=== PATIENT | male | born 1995 | race Two or more races ===

== ENCOUNTER 2019-03-10 09:36 | Emergency (ER) | payer MEDICAID ==
[~2019-03-10] VITALS: Ht 175.3 cm; Wt 80.8 kg
--- NOTE | 2019-03-10 09:49 | NUR ---
urine collected and sent to lab.
--- NOTE | 2019-03-10 09:49 | NUR ---
patient presented to the ER c/o abd pain x 4 days, and nausea and vomiting, diarrhea. On room air, breathing evenly and unlabored. kept comfortable, will continue to monitor accordingly. Awaiting for MD for eval.
--- NOTE | 2019-03-10 09:50 | NUR ---
DR. CHOPRA AT BEDSIDE FOR EVAL.
[2019-03-10] MEDS ORDERED: PANTOPRAZOLE 40 MG VIAL ONE (10:07)
[2019-03-10] MEDS ORDERED: MORPHINE SULFATE INJ 4 MG/ML DISP.SYRIN ONE (10:07)
[2019-03-10] MEDS ORDERED: ONDANSETRON HCL/PF 4 MG/2 ML VIAL ONE (10:07)
[2019-03-10] MEDS ORDERED: ACETAMINOPHEN ES 500 MG TABLET ONE (10:08)
[2019-03-10] MEDS ORDERED: METOCLOPRAMIDE HCL 10 MG/2 ML VIAL ONE (10:08)
[2019-03-10 10:18] LABS: BASOPHILS # (AUTO) 0.1 /CMM (0.0-0.2); BASOPHILS % (AUTO) 0.6 % (0.0-2.0); EOSINOPHILS % (AUTO) 0.6 % (0.0-6.0); HEMATOCRIT 46 % (39-51); MEAN CORPUSCULAR HGB CONC 35 g/dl (31.0-36.0); MEAN CORPUSCULAR VOLUME 85 fL (80-96); MONOCYTES % (AUTO) 10.1 % (2.0-12.0); NEUTROPHILS # (AUTO) 7.7 /CMM (1.8-8.9); NEUTROPHILS % (AUTO) 78.7 % (43.0-81.0); PLATELET COUNT (AUTO) 286 /CMM (150-450); RED BLOOD CELL COUNT(AUTO) 5.36 MIL/uL (4.5-6.0); WHITE BLOOD COUNT (AUTO) 9.8 K/uL (4.3-11.0)
--- NOTE | 2019-03-10 10:21 | NUR ---
IV LINE ESTABLISHED. LABS DRAWNED AND SENT TO LAB.
[2019-03-10 10:23] LABS: CALCIUM, SERUM 8.6 mg/dL (8.5-10.1); CREATININE 1.1 mg/dL (0.6-1.3); POTASSIUM 4.2 mmol/L (3.5-5.1)
--- NOTE | 2019-03-10 10:23 | NUR ---
PT IS WHEELED TO CT SCAN VIA [facility].
[2019-03-10 10:29] LABS: ALBUMIN 4.1 g/dL (3.4-5.0); BILIRUBIN,DIRECT 0.2 mg/dL (0.0-0.2); BILIRUBIN,TOTAL 0.7 mg/dL (0.2-1.0); TOTAL PROTEIN, SERUM 8.3 g/dL (6.4-8.2)
[2019-03-10] MEDS ORDERED: IV NS 0.9% 1,000 ML BAG IV ONE (10:30)
[2019-03-10] MEDS ORDERED: ONDANSETRON HCL/PF 4 MG/2 ML VIAL IVP ONE (10:30)
[2019-03-10] MEDS ORDERED: MORPHINE SULFATE INJ 2 MG/ML DISP.SYRIN IV ONE (10:30)
[2019-03-10] MEDS ORDERED: METOCLOPRAMIDE HCL 10 MG/2 ML VIAL IV ONE (10:30)
[2019-03-10] MEDS ORDERED: ACETAMINOPHEN ES 500 MG TABLET PO ONE (10:30)
[2019-03-10] MEDS ORDERED: PANTOPRAZOLE 40 MG VIAL IV ONE (10:30)
[2019-03-10 11:39] VITALS: BP 122/67
--- NOTE | 2019-03-10 11:39 | NUR ---
IV removed. Catheter intact and site benign. Pressure and 4x4 applied to site. No bleeding noted. Patient discharged to home in stable condition. Written and verbal after care instructions given. Patient verbalizes understanding of instruction.
== END 2019-03-10 11:41 | disposition home or self-care (01) ==
LOC: ER 09:42
DX: R50.9 Fever, unspecified (principal); R11.2 Nausea with vomiting, unspecified; R19.7 Diarrhea, unspecified
CPT/HCPCS: 36415; 74176; 80048; 80076; 83690; 85025; 96361; 96374; 96375; 99284; A4216; C9113; J2270; J2405; J2765; J7030

== ENCOUNTER 2024-10-19 19:19 | Emergency (ER) | payer MEDICAID, OTHER ==
[~2024-10-19] VITALS: Ht 175.3 cm; Wt 86.2 kg
[2024-10-19 19:40] VITALS: BP 138/87; TEMP 98.7; O2SAT 98
[2024-10-19] MEDS ORDERED: BETA45OI2 TP (19:59)
== END 2024-10-19 20:12 | disposition home or self-care (01) ==
LOC: ER 19:26
DX: L30.9 Dermatitis, unspecified (principal); Z88.8 Allergy status to other drugs, medicaments and biological substances